=== PATIENT | female | born 1955 | race Caucasian/White ===

== ENCOUNTER 2018-03-18 20:00 | Inpatient (IN) | payer MEDICARE ==
[~2018-03-18] VITALS: Ht 157.5 cm; Wt 84.1 kg
[~2018-03-18 20:00] MED LIST: ADVAIR 250-501 EACH INH; ALBUTEROL2.5 MG/0.5 INH; ASPIR 8181 MG PO; B COMPLEX1 EACH PO; COMBIVENT; COZAAR 50 MG TA50 M2 PO; GABAPENTIN 100100 MG PO; GARLIC1 EACH PO; LIPITOR80 MG PO; PERCOCET 2.5-31 EACH PO; PREDNISONE 20 M20 M1; PROAIR HFA8.5 GM INH
[2018-03-18 20:34] LABS: ABSOLUTE LYMPHOCYTES 1.6 thou/uL (0.8-5.3); ABSOLUTE NEUTROPHILS 13.6 thou/uL (1.6-8.1); BASOPHILS 0.3 %; HEMATOCRIT 32.3 % (37.0-47.0); HEMOGLOBIN 10.7 gm/dL (12.0-15.0); MCH 33.4 pg (26.0-34.0); MCHC 33.2 g/dL (28.0-37.0); MCV 100.8 fL (80.0-100.0); MONOCYTES 6.1 %; MPV 8.2 fl. (7.2-11.1); NUCLEATED RBCS 0 /100WBC; PLATELET COUNT* 283 thou/uL (150-400); POLYS 83.6 %; WBC 16.3 thou/uL (4.0-11.0)
[2018-03-18 20:41] LABS: CALCIUM 9.3 mg/dL (8.5-10.1); CREATININE 0.8 mg/dL (0.6-1.3); POTASSIUM 4.1 mmol/L (3.5-5.1)
[2018-03-18 20:45] LABS: ALBUMIN 3.6 g/dL (3.4-5.0); TOTAL BILIRUBIN 0.6 mg/dL (<0.1-1.0); TOTAL PROTEIN 7.7 g/dL (6.4-8.2)
[2018-03-18 21:22] LABS: BE 5.5 mmol/L (-2 to +3); HCO3 31.3 mmol/L (22.0-26.0)
[2018-03-18 21:31] LABS: PCO2 51.7 mmHg (35.0-45.0); PO2 222.9 mmHg (75.0-100.0)
[2018-03-18] MEDS ORDERED: WELLBUTRIN 100100 MG PO (21:39)
[2018-03-18] MEDS ORDERED: IRON325 PO (21:39)
[2018-03-18] MEDS ORDERED: DULCOLAX STOOL100 M1 PO (21:40)
[2018-03-18] MEDS ORDERED: COMBIVENT RESPIM4 GM INH (21:41)
[2018-03-18 22:30] VITALS: BP 137/83
[2018-03-18 23:06] VITALS: BP 134/55
[2018-03-19 03:55] VITALS: BP 130/68
[2018-03-19 04:00] LABS: BE 1.8 mmol/L (-2 to +3); HCO3 28.1 mmol/L (22.0-26.0); PO2 81.1 mmHg (75.0-100.0); pH 7.348 (7.340-7.450)
[2018-03-19 04:03] LABS: PCO2 52.3 mmHg (35.0-45.0)
--- NOTE | 2018-03-19 06:07 | NUR ---
ASSESSMENT COMPLETE. PT ADMITTED WITH COPD EXACERBATION AND RESPIRATORY FAILURE. PT TOLERATED BIPAP IN ED BUT NOT ON FLOOR. PT GIVEN SLEEPING MEDICATION AND XANAX TO HELP HER TOLERATE AND SHE STILL REFUSED. PT IS CURRENTLY ON 4L PER NC WITH IMPROVING ABG'S. PT GIVEN IV ABX IN ED. PT DDIMER ELEVATED, CTA NEGATIVE. PT HAS PERSISTENT LOOSE COUGH, TESSALON PEARLS AND MUCINEX STARTED. PT ALSO GETTING SOLUMEDROL AND RT TREATMENTS. PT HAS IV IN RIGHT AC, SALINE LOCKED. PT SEPSIS +, BOLUS GIVEN PER ED ORDER. PT DENIES PAIN AND N/V. PT IS FALL RISK, BED ALARM ON. PT UP STANDBY ASSIST TO BSC. SEE ASSESSMENT AND VITALS FOR OTHER DETAILS. CALL LIGHT WITHIN REACH, WILL CONTINUE PLAN OF CARE
[2018-03-19 08:00] VITALS: BP 134/78
--- NOTE | 2018-03-19 10:19 | EKG ---
[place] [address] ELECTROCARDIOGRAM REPORT Name: KENZIE KIRK Room: [address] IN [facility]#: [id number] Admission: 03/18/18 Attend Phys: Camille Padilla Discharge: Date of : 55 Report #: [id number] THIS REPORT FOR: //name// [facility] ED Test Date: 2018-03-18 Test Time: 20:29:45 Pat Name: KENZIE KIRK Department: Room: Gender: F [employer]: CORNELL : 1955 Requested By: Angie Bhatti Order Number: [id number] MD: Arnoldo Aguirre Measurements Intervals [place] Rate: 114 P: 74 FL: 150 QRS: 56 QRSD: 93 T: 52 QT: 317 QTc: 437 Interpretive Statements Sinus tachycardia nonspecific st changes Consider right atrial enlargement Low voltage, precordial leads Baseline wander in lead(s) V1,V2,V3 Compared to ECG 01/16/2015 01:09:02 Low QRS voltage now present Sinus rhythm no longer present Electronically Signed On 03-19-2018 10:19:20 CDT by Arnoldo Aguirre [email or web address] <ELECTRONICALLY SIGNED> By: Arnoldo Aguirre MD, FAC 03/19/18 1019 28 28 Arnoldo Aguirre MD, FAC /EPI
[2018-03-19 12:00] VITALS: BP 144/70
[2018-03-19 16:00] VITALS: BP 108/54
--- NOTE | 2018-03-19 16:53 | NUR ---
PT UP TO BSC WITH STEADY GAIT. PT ON O2@4L NC. PT SOA WITH MINIMAL ACTIVITY. PT TOLERATED BIPAP FOR FEW HOURS THIS AFTERNOON. PT CALM AND COOPERATIVE.
[2018-03-19 19:55] VITALS: BP 128/87
[2018-03-19 23:34] VITALS: BP 114/58
[2018-03-20 03:47] VITALS: BP 141/81
[2018-03-20 04:45] LABS: HEMATOCRIT 30.3 % (37.0-47.0); HEMOGLOBIN 9.9 gm/dL (12.0-15.0); MCH 33.8 pg (26.0-34.0); MCHC 32.7 g/dL (28.0-37.0); MCV 103.3 fL (80.0-100.0); MPV 9.1 fl. (7.2-11.1); RBC 2.94 mil/uL (4.20-5.00); WBC 17.1 thou/uL (4.0-11.0)
[2018-03-20 05:16] LABS: ALBUMIN 3.3 g/dL (3.4-5.0); CALCIUM 8.9 mg/dL (8.5-10.1); CREATININE 0.8 mg/dL (0.6-1.3); POTASSIUM 4.4 mmol/L (3.5-5.1); TOTAL BILIRUBIN 0.5 mg/dL (<0.1-1.0); TOTAL PROTEIN 6.9 g/dL (6.4-8.2)
--- NOTE | 2018-03-20 05:49 | NUR ---
ASSESSMENT COMPLETE. PT SLEPT MOST OF THE NIGHT WITHOUT ANY CONCERNS. PT IS ON 4L PER NC WITH [place] SATS. PT REFUSED BIPAP. PT ON TELE MONITOR, SR AT THIS TIME. PT SOA WITH MIN EXERTION. IV IN RIGHT AC, SALINE LOCKED AND FLUSHES WITHOUT DIFFICULTY. PT STANDBY TO BSC. PT FATIGUES EASILY. PT IS FALL RISK, BED ALARM ON. SEE ASSESSMENT AND VITALS FOR OTHER DETAILS. CALL LIGHT WITHIN REACH, WILL CONTINUE PLAN OF CARE
[2018-03-20 08:30] VITALS: BP 109/55
--- NOTE | 2018-03-20 15:57 | NUR ---
SW met with pt to complete initial assessment, introduce self, and SW role. Pt alert, oriented. Pt explained she moved out of her dtrs home bc she had to babysit her grandchildren all of the time so she moved back into section 8 housing on her own. Pt drives and is independent but says she has to rest and is unable to clean her house so she wants to be able to have Medicaid provided housekeeping services. Pt has oxygen at home that she does not use a company but has outright until it needs to be replaced. Pt PCP is Dr Joana Jang out of [place]. Pt discussed having a $350 spenddown when she had Medicaid but was unable to afford it and asked SW for any assistance bc she was concerned about finances. SW discussed [facility] and SW would follow to provide any resources/referrals and assist with safe dc planning.
[2018-03-20 16:46] VITALS: BP 124/47
--- NOTE | 2018-03-20 17:15 | NUR ---
PATIENT IS ALERT AND ORIENTED TODAY, ANXIOUS BUT PLEASANT. VITAL SIGNS STABLE ON 4 LITERS OF OXYGEN THROUGH NASAL CANNULA. SOME COMPLAINTS OF PAIN THAT IS CONTROLLED WITH ORAL PAIN MEDICATIONS. CALL LIGHT IS IN REACH, WILL CONTINUE TO MONITOR.
[2018-03-20 20:15] VITALS: BP 141/78
[2018-03-20 23:30] VITALS: BP 158/75
--- NOTE | 2018-03-21 03:27 | NUR ---
PT WAS ABLE TO WEAR BIPAP FOR 1 HOUR TONIGHT.
[2018-03-21 03:38] VITALS: BP 120/55
--- NOTE | 2018-03-21 05:37 | NUR ---
PT SLEPT MOST OF SHIFT. ASSESSMENT DOCUMENTED. MEDS GIVEN PER E-MAR. IV PATENT. O2 WORN THROUGH NIGHT. PT ATTEMPTED TO WEAR BIPAP, ON PATIENT FOR ABOUT 30 MINUTES. PAIN MEDS GIVEN PER E-MAR. WILL CONTINUE WITH PLAN OF CARE.
[2018-03-21 08:25] VITALS: BP 131/97
[2018-03-21 16:48] VITALS: BP 139/69
--- NOTE | 2018-03-21 19:37 | NUR ---
PATIENT RESTING IN BED. PATIENT IS UP AD SAVAGE TO BEDSIDE COMMODE. PATIENT HAD COMPLAINTS OF PAIN THIS AM, TREATED ADEQUATELY WITH MEDICATION. PATIENT HAS OXYGEN ON AT 2L/NC. PATIENT HAS HAD BREATHING TREATMENTS. PATIENT HAS GOOD APPETITE. PATIENT DENIES ANY NEEDS AT THIS TIME. CALL LIGHT WITHIN REACH. WILL CONTINUE TO MONITOR.
[2018-03-21 20:20] VITALS: BP 142/54
[2018-03-21 23:45] VITALS: BP 147/72
[2018-03-22 03:45] VITALS: BP 129/60; BP 156/67
[2018-03-22 03:47] LABS: HEMATOCRIT 28.9 % (37.0-47.0); HEMOGLOBIN 9.3 gm/dL (12.0-15.0); MCHC 32.1 g/dL (28.0-37.0); MCV 102.8 fL (80.0-100.0); MPV 8.6 fl. (7.2-11.1); RBC 2.81 mil/uL (4.20-5.00); RDW-CV 14.6 % (10.5-14.5); WBC 16.4 thou/uL (4.0-11.0)
[2018-03-22 04:02] LABS: CALCIUM 8.6 mg/dL (8.5-10.1); CREATININE 0.7 mg/dL (0.6-1.3); MAGNESIUM 2.3 mg/dL (1.8-2.4); POTASSIUM 4.6 mmol/L (3.5-5.1)
--- NOTE | 2018-03-22 05:24 | NUR ---
PT SLEPT AT INTERVALS DURING THE NIGHT, PLEASANT, UP SBA TO THE BSC, REMAINS ON 02 AT 4L/NC, BREATHING TREATMENTS BY RT, PRN PAIN AND ANXIETY MEDS AT HS, SEVERAL COUGHING EPISODES. CALL LIGHT IN REACH, WILL CONTINUE TO MONITOR
--- NOTE | 2018-03-22 08:49 | CON ---
[address] [address] CONSULTATION Name: KENZIE KIRK Room: [address] IN .R.#: [id number] Admission: 03/18/18 Attend Phys: Camille Padilla Discharge: Date of : 55 Report #: [id number] THIS REPORT FOR: //name// CC: [facility] physician/PCP Akira May DATE OF SERVICE: 03/21/2018 REFERRING PHYSICIAN: Marian Spear MD. CHIEF COMPLAINT: Dyspnea. HISTORY OF PRESENT ILLNESS: The patient is a 62-year-old female who is a prior smoker. She had been smoking around a half a pack to a pack of cigarettes per day, probably somewhere between 35-40 years. She quit in 2004. She is known to have chronic obstructive airways disease. She follows with a pulmonary physician in [place]. The patient had not been doing well for about a week and a half and of last week, she did present to her pulmonary physician. Medications were not changed. She was not started on anything new. Steroids or antibiotics were not recommended. Over the course of the next 48-72 hours, she continued to deteriorate. On Monday, she presented to the Emergency Room. She became weak, was having excessive amount of coughing, she was nonproductive. Her shortness of breath worsened as well. She uses oxygen at home, mostly at nighttime, but had been using it p.r.n. during the day. In addition, she has a nebulizer, had been using that medication as well. She increased the use of her nebulizer at least twice a day. Prior to that, it was p.r.n. Today, she is denying nausea, vomiting. She does have constipation. She is not coughing up any phlegm. PAST MEDICAL HISTORY: Significant for COPD, coronary artery disease. She is status post stents, sees a advanced developer. ALLERGIES: SHE IS ALLERGIC TO MORPHINE. FAMILY HISTORY: Positive for COPD, diabetes, and coronary artery disease. REVIEW OF SYSTEMS: System review negative other than what is outlined above. MEDICATIONS: Pulmonary medications prior to admission include Advair and aerosol treatments with ipratropium and albuterol. PHYSICAL EXAMINATION: VITAL SIGNS: Blood pressure 120/55, respiratory rate of 18, pulse rate 89, [place] [address] CONSULTATION Name: KENZIE KIRK Room: [address]#: [id number] Admission: 03/18/18 Attend Phys: Camille Padilla Discharge: Date of : 55 Report #: [id number] temperature 97.1 degrees. Her admission weight 185 pounds. GENERAL APPEARANCE: Awake, alert, oriented, completes full sentences. HEENT: Head atraumatic. EYES: Pupils are round and equal, reactive. Face, no swelling of the soft tissue or ecchymosis. NOSE: Nasal passages are patent without polyps. ORAL CAVITY: Wears dentures. Moist mucous membranes. The oropharynx is a stage III crowding. NECK: Without adenopathy, JVD or bruits. CHEST: Prolonged expiratory phase. She does have a few very faint end expiratory wheezes throughout. CARDIOVASCULAR: Regular rhythm without murmurs or rubs. ABDOMEN: Obese without organomegaly or tenderness. EXTREMITIES: Negative for edema. No evidence of clubbing or cyanosis. SKIN: Warm and dry without rash. LYMPHATICS: Negative. Pulses equal bilaterally. NEUROLOGIC: Moves all 4 extremities spontaneously. Strength equal bilaterally. PSYCHIATRIC: She is alert. She is talkative. She is not delusional. She responds appropriately. LABORATORY DATA: An arterial blood gas on admission revealed a pH 7.40, pCO2 of 52, pO2 of 223, bicarbonate 31 while on BiPAP 16/5. Repeat arterial blood gas while on 4 liters, pH 7.35, pCO2 of 52, pO2 of 81, bicarbonate of 28. Hemoglobin and hematocrit on 03/20/2018 was 9.9 and 30 with a white count of 17,100, platelet count 235,000. Sodium 141, potassium 4.4, chloride 101, CO2 of 35, BUN of 21, creatinine 0.8. CTA of the chest revealed severe emphysematous changes throughout both lungs. There was no evidence of pulmonary artery filling defects. ASSESSMENT: 1. Exacerbation of chronic obstructive pulmonary disease. 2. Exertional dyspnea. 3. Chronic hypercapnia. 4. Acute on chronic respiratory failure. RECOMMENDATION: Continue aerosol treatments, initiates montelukast 10 mg once a day, budesonide has already been ordered. Continue with IV steroids, she is on 62.5 mg q.8h. No further recommendations at this point other than what is outlined above. <ELECTRONICALLY SIGNED> By: Brianne Miranda MD 03/22/18 0849 [id number] Pratt MD /nt
[2018-03-22 10:19] VITALS: BP 161/87
--- NOTE | 2018-03-22 17:50 | NUR ---
PATIENT HAS BEEN ALERT AND ORIENTED TODAY. VERY LOUD IN ROOM, MOANING AND TALKING TO SELF. VITAL SIGNS HAVE BEEN STABLE ON 3 TO 4 LITERS OF OXYGEN. PATIENT IS UP TO BEDSIDE COMMODE BY SELF. CALLS FOR HELP WHEN NEEDED. CALL LIGHT IS IN REACH, WILL CONTINUE TO MONITOR.
[2018-03-22 18:19] VITALS: BP 137/77
[2018-03-22 20:20] VITALS: BP 167/66
[2018-03-23] VITALS: BP 111/43
--- NOTE | 2018-03-23 05:05 | NUR ---
PT SLEPT AT INTERVALS DURING THE NIGHT, UP TO BSC SBA, ONE BM TONIGHT, REMAINS ON 02 AT 3L/NC, PLEASANT, PRN PAIN AND ANXIETY MEDS AT HS, CALL LIGHT IN REACH, WILL CONTINUE TO MONITOR
[2018-03-23 09:00] VITALS: BP 139/60
[2018-03-23 16:15] VITALS: BP 152/75
--- NOTE | 2018-03-23 16:35 | NUR ---
SW followed up with pt and provided information about [facility] and possibility of Janet assisting with reinstating Medicaid for future homemaker services assistance. SW also provided information for applying for homemaker services after Medicaid if reinstated. SW received call from Janet from [facility] who said that they would be unable to accept referral and assist due to pt having signed up for [facility]. Pt would have to change that option if pt wanted Medicaid. [facility] number [phone]. SW to follow up with pt to explain above information. Pt anticipates being in the hospital a few more days. SW to continue to assist with safe dc planning.
--- NOTE | 2018-03-23 19:07 | NUR ---
PATIENT HAS BEEN ALERT AND ORIENTED TODAY, ANXIOUS AT TIMES. VITAL SIGNS HAVE BEEN STABLE ON 4 LITERS OF OXYGEN, HAVE REQUESTED BREATHING TREATMENT THIS EVENING. CALL LIGHT IS IN RAECH, WILL CONTINUE TO MONITOR.
[2018-03-23 23:34] VITALS: BP 124/52
[2018-03-24 03:46] VITALS: BP 141/52
--- NOTE | 2018-03-24 06:28 | NUR ---
PATIENT SLEPT WELL OFF AND ON DURING THIS SHIFT. PT WITH CONSTANT COUGH. PT WITH O2 @ 3 LITERS PER NASAL CANNULA AND BIPAP AT NIGHT. PT WITH SALINE LOCK IN LT HAND, PATENT. PT C/O PAIN FROM COUGHING, RECEIVED ONE PERCOCET AT HS. PT DENIES NEEDS AT THIS TIME. FREQUENTLY USED ITEMS AND CALL LIGHT WITHIN REACH. SIDERAILS UPX2. PT IS UP AD SAVAGE TO BSC. WILL CONTINUE TO MONITOR.
[2018-03-24 12:17] VITALS: BP 141/78
--- NOTE | 2018-03-24 18:52 | NUR ---
ASSUMED CARE THIS AM, A/O X 4, OFTEN PRESENTING ANXIOUS BEHAVIOR. NOTED BY STAFF TO BE HORDING BRIEFS, ASKING ALL STAFF MEMBERS TO GET HER MORE. NITESH NEBS AND MEDS AND CARES WELL, HAD HAIR STYLED IN ROOM. FREQUENT NONPROD COUGH CONT, DENIES PAIN, CALL LIGHYT IN REACH, CONT POC.
[2018-03-24 20:00] VITALS: BP 146/41
[2018-03-24 23:29] VITALS: BP 118/49
[2018-03-25 04:07] VITALS: BP 131/53
--- NOTE | 2018-03-25 07:25 | NUR ---
this nurse assumed care of pt 03/24/18 at 1930, pt alert and oriented x4, pt complains of chronic left leg pain, controled with PO meds prn, pt up ad ezequiel to bedside commode, stress incontinence, pt continues to have non productive cough, lung sounds wheezes with fine crackles, tracing sinus rhythm on quality assurance monitor
[2018-03-25 08:00] VITALS: BP 128/91
[2018-03-25 11:28] VITALS: BP 163/49
[2018-03-25 15:34] VITALS: BP 134/49
[2018-03-25 20:00] VITALS: BP 128/50
[2018-03-26] VITALS (8 sets, daily range): BP systolic 106–164; BP diastolic 45–111
--- NOTE | 2018-03-26 05:22 | NUR ---
PATIENT RESTED IN BED, NO ACUTE CHANGES. PATIENT DID NOT SHOW SIGNS OF DISTRESS, PATIENT CONTINUES TO HAVE COUGH. PATIENT UP AB-SAVAGE, HOURLY ROUNDING OBSERVED.
[2018-03-26] MEDS ORDERED: LEVAQUIN 500 M500 M2 PO (14:16)
[2018-03-26] MEDS ORDERED: PREDNISONE 10 M10 MG PO (14:20)
[2018-03-26] MEDS ORDERED: MUCINEX600 MG PO (14:22)
[2018-03-26] MEDS ORDERED: PRENATAL PO (14:23)
--- NOTE | 2018-03-26 17:14 | NUR ---
XOCHITL followed up with pt and explained that [facility] would be unable to accept referral to assist with Medicaid reactivation due to pt specific plan. SW provided number to change plan if pt chooses at number [phone]. Pt discussed need for 4 ww with a seat. XOCHITL called and faxed referral to [facility] [phone] fax [phone] and spoke with Tish who confirmed delivery would be to pt home tomorrow. Pt dtr to assist pt in the home.
--- NOTE | 2018-03-26 18:03 | NUR ---
PATIENT GIVEN DISCHARGE INSTRUCTIONS AND PRESCRIPTIONS AT THIS TIME. PATIENT REQUESTED TO HAVE A PRESCRIPTION FOR XANAX AND FOR COUGH SYRUP. DR MCCRARY NOTIFIED AND GAVE THIS RN PERMISSION TO CALL PRESCRIPTIONS IN FOR XANAX AND COUGH SYRUP. PATIENT INFORMED OF THE ABOVE. 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 PATIENT VERBALIZED UNDERSTANDING IN REGARDS TO FOLLOW UP APPOINTMENTS AND NEW MEDICATIONS. PATIENT DISCHARGED TO HOME WITH ALL BELONGINGS. ESCORTED OFF NURSING UNIT WITH NURSING STAFF.
== END 2018-03-26 18:02 | disposition home or self-care (01) | DRG 177 ==
LOC: M.ERS 20:00 → M.3W 21:06 → M.TBA-ER 21:06 → M.3W 22:34
PROVIDERS: Internal Medicine; Personal Emergency Response Attendant; ADMIT Internal Medicine
PROC: 5A09357 Assistance with Respiratory Ventilation, Less than 24 Consecutive Hours, Continuous Positive Airway Pressure (ICD-10-PCS; principal; 2018-03-23)
DX: J69.0 Pneumonitis due to inhalation of food and vomit (principal); J96.21 Acute and chronic respiratory failure with hypoxia; R65.11 Systemic inflammatory response syndrome (SIRS) of non-infectious origin with acute organ dysfunction; J96.22 Acute and chronic respiratory failure with hypercapnia; J44.1 Chronic obstructive pulmonary disease with (acute) exacerbation; J98.11 Atelectasis; I25.10 Atherosclerotic heart disease of native coronary artery without angina pectoris; J40 Bronchitis, not specified as acute or chronic; D64.9 Anemia, unspecified; D72.829 Elevated white blood cell count, unspecified; I10 Essential (primary) hypertension; Z95.5 Presence of coronary angioplasty implant and graft; Z88.6 Allergy status to analgesic agent; Z83.3 Family history of diabetes mellitus; Z82.49 Family history of ischemic heart disease and other diseases of the circulatory system; Z83.6 Family history of other diseases of the respiratory system; Z87.891 Personal history of nicotine dependence; Z79.82 Long term (current) use of aspirin; Z79.899 Other long term (current) drug therapy